=== PATIENT | male | born 1970 | race American Indian/Alaskan Native ===

== ENCOUNTER 2018-06-25 01:08 | Emergency (ER) | payer SELFPAY ==
[2018-06-25 01:18] VITALS: BP 153/102
[2018-06-25 02:16] LABS: Basophils # (Auto) 0.1 K/mm3 (0.0-0.1); Basophils % (Auto) 0.9 % (0.0-1.8); Eosinophils # (Auto) 0.1 K/mm3 (0.0-0.4); Eosinophils % (Auto) 1.4 % (0.0-4.3); Hematocrit 45.3 % (35.5-45.6); Hemoglobin 15.2 gm/dl (11.8-15.2); Lymphocytes # (Auto) 2.1 K/mm3 (1.2-5.4); Lymphocytes % (Auto) 24.8 % (13.4-35.0); Mean Corpuscular HGB Conc 34 % (32-34); Mean Corpuscular Volume 93 fl (84-94); Monocytes # (Auto) 0.7 K/mm3 (0.0-0.8); Monocytes % (Auto) 8.5 % (0.0-7.3); Platelet Count 215 K/mm3 (140-440); Red Blood Count 4.89 M/mm3 (3.65-5.03); Red Cell Distribution Width 15.5 % (13.2-15.2)
--- NOTE | 2018-06-25 02:31 | XRay Report ---
FINAL REPORT PROCEDURE: XR CHEST ROUTINE 2V TECHNIQUE: PA and lateral chest radiographs were obtained. CPT 53303 HISTORY: shortness of breath COMPARISON: No prior studies are available for comparison. FINDINGS: Heart: Normal. Mediastinum/Vessels: Normal. Lungs/Pleural space: Normal. Bony thorax: No acute osseous abnormality. Other: IMPRESSION: Normal examination.
[2018-06-25 02:35] LABS: BUN/Creatinine Ratio 11; Blood Urea Nitrogen 11 mg/dL (9-20); Calcium 9.2 mg/dL (8.4-10.2); Hemolysis Index 11
--- NOTE | 2018-06-25 05:03 | Emergency Department Report ---
- General Chief Complaint: Upper Respiratory Infection Stated Complaint: COLD SXS Time Seen by Provider: 06/25/18 04:53 Source: patient Mode of arrival: Ambulatory Limitations: No Limitations - History of Present Illness Initial Comments: 48-year-old -[place] male comes to the emergency room complaining of cold-like symptoms with productive cough green yellow sputum and chills body aches 3 weeks. Patient does not have a primary care provider. Patient does have a history of psychosis and PTSD. Patient reports he has taken [id number] Robitussin and Mucinex. MD Complaint: cough, rhinorrhea, nasal congestion -: week(s) (3) Severity: severe Consistency: intermittent Worsens With: nothing Associated Symptoms: fever, chills, myalgias, rhinorrhea, nasal congestion, cough Treatments Prior to Arrival: "cold medicine" - Related Data Previous Rx's Medication Instructions Recorded Last Taken Type Azithromycin [Zithromax Z-CELENA] 250 mg PO QDAY 6 Days #6 tablet 06/25/18 Unknown Rx Dexchlorpheniram/Phenylephrine 1 each PO Q6H #20 tab 06/25/18 Unknown Rx [Rymed Tablet] Allergies Allergy/AdvReac Type Severity Reaction Status Date / Time No Known Allergies Allergy Unverified 11/01/14 00:04 ED Review of Systems ROS: Stated complaint: COLD SXS Other details as noted in HPI Comment: All other systems reviewed and negative Constitutional: chills, fever ENT: throat pain, congestion Respiratory: cough Gastrointestinal: denies: abdominal pain, nausea, diarrhea Genitourinary: denies: urgency, dysuria Musculoskeletal: denies: back pain, joint swelling, arthralgia Skin: denies: rash, lesions Neurological: denies: headache, weakness, paresthesias ED Past Medical Hx - Past Medical History Previous Medical History?: Yes Hx Psychiatric Treatment: Yes (IP/OP) Additional medical history: Bronchitis - Surgical History Past Surgical History?: No - Social History Smoking Status: Light Tobacco Smoker Substance Use Type: Marijuana - Medications Home Medications: Home Medications Medication Instructions Recorded Confirmed Last Taken Type Azithromycin [Zithromax Z-CELENA] 250 mg PO QDAY 6 Days #6 tablet 06/25/18 Unknown Rx Dexchlorpheniram/Phenylephrine 1 each PO Q6H #20 tab 06/25/18 Unknown Rx [Rymed Tablet] ED Physical Exam - General Limitations: No Limitations General appearance: alert, in no apparent distress - Head Head exam: Present: atraumatic, normocephalic - Eye Eye exam: Present: EOMI - ENT ENT exam: Present: mucous membranes moist - Neck Neck exam: Present: normal inspection, full ROM. Absent: lymphadenopathy - Respiratory Respiratory exam: Present: normal lung sounds bilaterally. Absent: respiratory distress - Cardiovascular Cardiovascular Exam: Present: regular rate, normal rhythm. Absent: systolic murmur, diastolic murmur, rubs, gallop - Neurological Exam Neurological exam: Present: alert, oriented X3 - Psychiatric Psychiatric exam: Present: normal affect, normal mood - Skin Skin exam: Present: warm, dry, intact, normal color. Absent: rash ED Course Vital Signs 06/25/18 01:16 Temperature 97.9 F Pulse Rate 101 H Respiratory 18 Rate Blood Pressure 153/102 O2 Sat by Pulse 98 Oximetry ED Medical Decision Making - Lab Data Result diagrams: 06/25/18 02:04 06/25/18 02:04 - Radiology Data Radiology results: report reviewed Chest x-ray normal examination Critical care attestation.: If time is entered above; I have spent that time in minutes in the direct care of this critically ill patient, excluding procedure time. ED Disposition Clinical Impression: URI (upper respiratory infection) Qualifiers: URI type: unspecified URI Qualified Code(s): J06.9 - Acute upper respiratory infection, unspecified Disposition: DC-01 TO HOME OR SELFCARE Is pt being admited?: No Does the pt Need Aspirin: No Condition: Stable Instructions: Upper Respiratory Infection (ED) Additional Instructions: Complete antibiotics as prescribed. Take antihistamine as prescribed. Please increase clear fluid intake while taking medication. Symptoms persisted gets worse please follow up with her primary care provider. Prescriptions: Azithromycin [Zithromax Z-CELENA] 250 mg PO QDAY 6 Days #6 tablet Dexchlorpheniram/Phenylephrine [Rymed Tablet] 1 each PO Q6H #20 tab Referrals: MYRTLE SMITH MD [Primary Care Provider] - 3-5 Days
== END 2018-06-25 05:15 | disposition home or self-care (01) ==
LOC: ED 01:08
DX: J06.9 Acute upper respiratory infection, unspecified (principal); F17.200 Nicotine dependence, unspecified, uncomplicated; F12.10 Cannabis abuse, uncomplicated
CPT/HCPCS: 36415; 71046; 80048; 85025

== ENCOUNTER 2018-07-09 22:51 | Emergency (ER) | payer OTHER ==
[2018-07-09 23:09] VITALS: BP 135/63
--- NOTE | 2018-07-10 01:31 | Emergency Department Report ---
ED Shortness of Breath HPI - General Chief Complaint: Dyspnea/Respdistress Stated Complaint: DIFFICULTY BREATHING Time Seen by Provider: 07/10/18 01:26 Source: patient Mode of arrival: Ambulatory Limitations: No Limitations - History of Present Illness Initial Comments: 48-year-old -[place] male with a past medical history of psychosis, tobacco use, PTSD, chronic bronchitis comes in today stating that he has shortness of breathing and coughing a lot. Patient reports that he was seen at [facility] last night and was given 2 breathing treatments and a prescription for Tessalon Perles. Patient reports last week she was seen at [facility] for the same complaint. Patient was also seen here on 06/25/2018 and was prescribed a Zithromax and Rymed. Patient denies any wheezing. MD Complaint: cough -: week(s) (3) Associated Symptoms: cough - Related Data Home Oxygen Therapy: No Previous Rx's Medication Instructions Recorded Last Taken Type Azithromycin [Zithromax Z-CELENA] 250 mg PO QDAY 6 Days #6 tablet 06/25/18 Unknown Rx Dexchlorpheniram/Phenylephrine 1 each PO Q6H #20 tab 06/25/18 Unknown Rx [Rymed Tablet] Allergies Allergy/AdvReac Type Severity Reaction Status Date / Time No Known Allergies Allergy Unverified 11/01/14 00:04 ED Review of Systems ROS: Stated complaint: DIFFICULTY BREATHING Other details as noted in HPI ED Past Medical Hx - Past Medical History Previous Medical History?: Yes Hx Psychiatric Treatment: Yes (IP/OP) Additional medical history: Bronchitis - Surgical History Past Surgical History?: No - Social History Smoking Status: Current Some Day Smoker Substance Use Type: Other - Medications Home Medications: Home Medications Medication Instructions Recorded Confirmed Last Taken Type Azithromycin [Zithromax Z-CELENA] 250 mg PO QDAY 6 Days #6 tablet 06/25/18 Unknown Rx Dexchlorpheniram/Phenylephrine 1 each PO Q6H #20 tab 06/25/18 Unknown Rx [Rymed Tablet] ED Physical Exam - General Limitations: No Limitations General appearance: alert, in no apparent distress - Eye Eye exam: Present: EOMI - ENT ENT exam: Present: mucous membranes moist - Neck Neck exam: Present: normal inspection - Respiratory Respiratory exam: Present: normal lung sounds bilaterally. Absent: respiratory distress - Cardiovascular Cardiovascular Exam: Present: tachycardia - GI/Abdominal GI/Abdominal exam: Present: soft, normal bowel sounds - Rectal Rectal exam: Present: deferred - Extremities Exam Extremities exam: Present: normal inspection, full ROM - Back Exam Back exam: Present: normal inspection - Neurological Exam Neurological exam: Present: alert, oriented X3, normal gait - Expanded Psychiatric Exam Expanded Focused psych exam: Present: pressured speech, loose associations - Skin Skin exam: Present: warm, dry, intact, normal color. Absent: rash ED Course Vital Signs 07/09/18 23:04 Temperature 98.1 F Pulse Rate 104 H Respiratory 18 Rate Blood Pressure 135/63 O2 Sat by Pulse 98 Oximetry ED Medical Decision Making - Medical Decision Making Patient has been evaluated by this provider and a ACC. Patient has no wheezing no coughing during my interview process as well as my examination. Patient shows me a bottle of Tessalon Perles. He also shows me a bottle of amoxicillin. Patient is discharged home to follow up with the primary care provider. Patient is encouraged to take his trazodone and Zoloft. Critical care attestation.: If time is entered above; I have spent that time in minutes in the direct care of this critically ill patient, excluding procedure time. ED Disposition Clinical Impression: Cough Disposition: DC-01 TO HOME OR SELFCARE Is pt being admited?: No Does the pt Need Aspirin: No Condition: Stable Instructions: Chronic Cough (ED) Additional Instructions: Please is continue taking your cough medication that was given to you at [facility] which was Tessalon Perles. Follow-up with her primary care provider I have listed one below for your convenience. Referrals: MYRTLE SMITH MD [Primary Care Provider] - 3-5 Days Forms: Work/School Release Form(ED)
== END 2018-07-10 03:15 | disposition home or self-care (01) ==
LOC: ED 22:51
DX: R05 Cough (principal); R06.02 Shortness of breath; F17.200 Nicotine dependence, unspecified, uncomplicated; F43.10 Post-traumatic stress disorder, unspecified
CPT/HCPCS: 99283

== ENCOUNTER 2018-10-06 01:02 | Emergency (ER) | payer MEDICAID ==
[2018-10-06] MEDS ORDERED: DELTASONE PO ONE (03:34)
[2018-10-06] MEDS ORDERED: IBUPROFEN PO ONE (03:34)
[2018-10-06] MEDS ORDERED: ZOFRAN ODT PO ONE (03:34)
[2018-10-06] MEDS ORDERED: TYLENOL PO ONE (03:34)
--- NOTE | 2018-10-06 04:00 | Emergency Department Report ---
ED Back Pain/Injury HPI - General Chief Complaint: Extremity Injury, Lower Stated Complaint: ARTHRITIS Time Seen by Provider: 10/06/18 03:10 Source: patient Limitations: No Limitations - History of Present Illness MD Complaint: back pain, other (diffuse bilateral knee pain) -: Gradual, month(s) (6) Similar Symptoms Previously: Yes (chronic osteoarthritis) Place: home Radiation: left leg, right leg Severity: moderate Severity scale (0 -10): 5 Quality: sharp Consistency: constant Improves With: none, walking Worsens With: none, movement, sitting upright Context: other (chronic osteoarthritis) Associated Symptoms: difficulty walking. denies: confusion, weakness, chest pain, cough, difficulty urinating, diaphoresis, incontinence, constipation, headaches, abdominal pain, malaise, nausea/vomiting, seizure, shortness of breath, syncope - Related Data Previous Rx's Medication Instructions Recorded Last Taken Type Azithromycin [Zithromax Z-CELENA] 250 mg PO QDAY 6 Days #6 tablet 06/25/18 Unknown Rx Dexchlorpheniram/Phenylephrine 1 each PO Q6H #20 tab 06/25/18 Unknown Rx [Rymed Tablet] Ibuprofen [Motrin] 800 mg PO Q8HR PRN #20 tablet 10/06/18 Unknown Rx predniSONE [Deltasone] 60 mg PO QDAY #15 tab 10/06/18 Unknown Rx traMADol [Ultram] 50 mg PO Q6HR PRN #15 tablet 10/06/18 Unknown Rx Allergies Allergy/AdvReac Type Severity Reaction Status Date / Time No Known Allergies Allergy Unverified 11/01/14 00:04 ED Review of Systems ROS: Stated complaint: ARTHRITIS Other details as noted in HPI Comment: All other systems reviewed and negative Constitutional: no symptoms reported, see HPI. denies: diaphoresis, fever, malaise Eyes: as per HPI. denies: vision change ENT: as per HPI. denies: ear pain, dental pain, hearing loss Respiratory: no symptoms reported, see HPI. denies: cough, shortness of breath, SOB with exertion, SOB at rest Cardiovascular: as per HPI. denies: chest pain, palpitations, dyspnea on exertion, orthopnea, edema, syncope, paroxysmal nocturnal dyspnea Endocrine: no symptoms reported. denies: excessive sweating, flushing, intolerance to cold, increased thirst, unexplained weight gain Gastrointestinal: as per HPI. denies: abdominal pain, nausea, vomiting, diarrhea, hematemesis, melena Genitourinary: as per HPI. denies: urgency, dysuria, frequency, hematuria, discharge, testicular pain, testicular mass Musculoskeletal: as per HPI, back pain, arthralgia, myalgia Skin: as per HPI. denies: rash, lesions, change in color, change in hair/nails Neurological: as per HPI (diffuse joint pains). denies: headache, weakness, numbness, paresthesias, confusion Psychiatric: as per HPI Hematological/Lymphatic: as per HPI ED Past Medical Hx - Past Medical History Previous Medical History?: Yes Hx Psychiatric Treatment: Yes (IP/OP) Additional medical history: Bronchitis - Surgical History Past Surgical History?: No - Social History Smoking Status: Current Some Day Smoker - Medications Home Medications: Home Medications Medication Instructions Recorded Confirmed Last Taken Type Azithromycin [Zithromax Z-CELENA] 250 mg PO QDAY 6 Days #6 tablet 06/25/18 Unknown Rx Dexchlorpheniram/Phenylephrine 1 each PO Q6H #20 tab 06/25/18 Unknown Rx [Rymed Tablet] Ibuprofen [Motrin] 800 mg PO Q8HR PRN #20 tablet 10/06/18 Unknown Rx predniSONE [Deltasone] 60 mg PO QDAY #15 tab 10/06/18 Unknown Rx traMADol [Ultram] 50 mg PO Q6HR PRN #15 tablet 10/06/18 Unknown Rx ED Physical Exam - General Limitations: No Limitations General appearance: alert, in no apparent distress - Head Head exam: Present: atraumatic, normocephalic, normal inspection - Eye Eye exam: Present: normal appearance, PERRL, EOMI. Absent: scleral icterus, conjunctival injection, nystagmus Pupils: Present: normal accommodation - ENT ENT exam: Present: normal exam, normal orophraynx, mucous membranes moist, TM's normal bilaterally, normal external ear exam - Neck Neck exam: Present: normal inspection - Respiratory Respiratory exam: Present: normal lung sounds bilaterally. Absent: wheezes, rales, rhonchi, chest wall tenderness, accessory muscle use, decreased breath sounds, prolonged expiratory - Cardiovascular Cardiovascular Exam: Present: regular rate, normal heart sounds. Absent: normal rhythm, bradycardia, irregular rhythm, systolic murmur, diastolic murmur - GI/Abdominal GI/Abdominal exam: Present: soft, normal bowel sounds. Absent: tenderness, guarding, rebound, hyperactive bowel sounds, hypoactive bowel sounds, organomegaly - Rectal Rectal exam: Present: deferred - Extremities Exam Extremities exam: Present: normal inspection, tenderness (palpable lumbosacral paraspinal musculoskeletal tenderness). Absent: normal capillary refill, pedal edema, joint swelling, calf tenderness - Back Exam Back exam: Present: normal inspection, tenderness (palpable lumbar sacral paraspinal musculoskeletal tendon). Absent: CVA tenderness (L), muscle spasm, paraspinal tenderness, rash noted - Neurological Exam Neurological exam: Present: alert, oriented X3, CN II-XII intact, normal gait, reflexes normal - Psychiatric Psychiatric exam: Present: normal affect - Skin Skin exam: Present: warm, dry, intact, normal color ED Course Vital Signs 10/06/18 10/06/18 01:07 01:15 Temperature 98.1 F 98.1 F Pulse Rate 90 90 Respiratory 18 18 Rate Blood Pressure 136/79 136/79 O2 Sat by Pulse 98 98 Oximetry - Reevaluation(s) Reevaluation #1: 10/06/18 04:04 Patient is alert and oriented 3 and is mostly in distress but in pain. Vital signs are stable. Patient was treated for pain in the ED and discharged home on pain medications, and advised to follow up with his primary care physician in 3-4 days for reevaluation. ED Medical Decision Making - Medical Decision Making Patient has chronic pain from osteoarthritis. The patient was treated for the same in the ED and discharged home on medications for pain. Patient is advised to follow up with his primary care physician in 7-10 days for reevaluation or return to the ED immediately if symptoms get worse. - Differential Diagnosis chronic osteoarthritis, chronic pain, Critical care attestation.: If time is entered above; I have spent that time in minutes in the direct care of this critically ill patient, excluding procedure time. ED Disposition Clinical Impression: Chronic osteoarthritis, Chronic pain syndrome Disposition: TO HOME OR SELFCARE Is pt being admited?: No Does the pt Need Aspirin: No Condition: Stable Instructions: Chronic Pain (ED), Osteoarthritis (ED) Additional Instructions: Follow up with your Primary Care physician as advised. Return to the ED immediately if symptoms get worse. Prescriptions: predniSONE [Deltasone] 60 mg PO QDAY #15 tab Ibuprofen [Motrin] 800 mg PO Q8HR PRN #20 tablet PRN Reason: Pain , Severe (7-10) traMADol [Ultram] 50 mg PO Q6HR PRN #15 tablet PRN Reason: Pain Referrals: MYRTLE SMITH MD [Primary Care Provider] - 3-5 Days Time of Disposition: 04:09 Print Language: SYRIAC
[2018-10-06 05:07] VITALS: BP 128/80
== END 2018-10-06 05:00 | disposition home or self-care (01) ==
LOC: ED 01:02
DX: G89.29 Other chronic pain (principal); M19.90 Unspecified osteoarthritis, unspecified site; F17.200 Nicotine dependence, unspecified, uncomplicated
CPT/HCPCS: 99282; J7512; Q0162

== ENCOUNTER 2018-10-12 22:25 | Emergency (ER) | payer MEDICAID ==
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
[2018-10-12 22:45] VITALS: BP 150/93
[2018-10-12] MEDS ORDERED: BOOSTRIX IM ONE (22:56)
[2018-10-12] MEDS ORDERED: TYLENOL PO ONE (22:58)
[2018-10-12] MEDS ORDERED: IBUPROFEN PO ONE (22:58)
[2018-10-12] MEDS ORDERED: TETRACAINE 0.5% OU ONE (22:59)
[2018-10-12] MEDS ORDERED: FUL-GLO OP ONE (23:03)
[2018-10-12] MEDS: FUL-GLO OP ONE ×2 (23:06→23:18)
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
== END 2018-10-12 23:56 | disposition home or self-care (01) ==
LOC: ED 22:25
DX: S02.92XA Unspecified fracture of facial bones, initial encounter for closed fracture (principal); S05.92XA Unspecified injury of left eye and orbit, initial encounter; Y04.0XXA Assault by unarmed brawl or fight, initial encounter; Y93.89 Activity, other specified; Y92.410 Unspecified street and highway as the place of occurrence of the external cause; Y99.8 Other external cause status
CPT/HCPCS: 90471; 90715

== ENCOUNTER 2018-10-23 00:20 | Emergency (ER) | payer MEDICAID ==
[2018-10-23 01:29] VITALS: BP 143/87
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
== END 2018-10-23 04:10 | disposition home or self-care (01) ==
LOC: ED 00:20
DX: S05.92XD Unspecified injury of left eye and orbit, subsequent encounter (principal); H11.32 Conjunctival hemorrhage, left eye; F17.200 Nicotine dependence, unspecified, uncomplicated; X58.XXXD Exposure to other specified factors, subsequent encounter
CPT/HCPCS: 99282

== ENCOUNTER 2018-10-28 14:28 | Emergency (ER) | payer MEDICAID ==
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
[2018-10-28 15:31] LABS: Basophils # (Auto) 0.1 K/mm3 (0.0-0.1); Basophils % (Auto) 0.7 % (0.0-1.8); Eosinophils # (Auto) 0.1 K/mm3 (0.0-0.4); Eosinophils % (Auto) 1.6 % (0.0-4.3); Hematocrit 46.6 % (35.5-45.6); Hemoglobin 16.1 gm/dl (11.8-15.2); Lymphocytes # (Auto) 2.3 K/mm3 (1.2-5.4); Lymphocytes % (Auto) 25.5 % (13.4-35.0); Mean Corpuscular HGB Conc 34 % (32-34); Mean Corpuscular Volume 93 fl (84-94); Monocytes # (Auto) 0.7 K/mm3 (0.0-0.8); Monocytes % (Auto) 7.7 % (0.0-7.3); Platelet Count 241 K/mm3 (140-440); Red Blood Count 4.99 M/mm3 (3.65-5.03); Red Cell Distribution Width 14.4 % (13.2-15.2)
[2018-10-28 15:55] LABS: Alanine Aminotransferase 24 units/L (7-56); Albumin 3.8 g/dL (3.9-5); BUN/Creatinine Ratio 11; Blood Urea Nitrogen 11 mg/dL (9-20); Calcium 9.1 mg/dL (8.4-10.2); Hemolysis Index 84
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
[2018-10-28 16:52] LABS: Bilirubin,Urine NEG (Negative); Blood,Urine NEG (Negative); Color,Urine Yellow (Yellow); Mucus,Urine FEW /HPF; Protein,Urine <15 mg/dL mg/dL (Negative); Urobilinogen,Urine < 2.0 mg/dL (<2.0); WBC,Urine < 1.0 /HPF (0.0-6.0)
[2018-10-28 17:29] LABS: Amphetamine Screen,Urine PRESUMPTIVE NEGATIVE; Benzodiazepines Screen,Urine PRESUMPTIVE NEGATIVE; Cannabinoid Screen,Urine PRESUMPTIVE POSITIVE
[2018-10-28 17:30] LABS: Cocaine Screen,Urine PRESUMPTIVE NEGATIVE; Methadone Screen,Urine PRESUMPTIVE NEGATIVE; Opiate Screen,Urine PRESUMPTIVE NEGATIVE
[2018-10-28] MEDS ORDERED: VISTARIL PO PRN (18:51)
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
[2018-10-29] MEDS: ZOLOFT PO SCH (17:34)
[2018-10-29] MEDS ORDERED: DESYREL PO SCH (22:00)
[2018-10-30] MEDS: ZOLOFT PO SCH (11:08)
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
[2018-10-30 14:17] VITALS: BP 139/94
== END 2018-10-30 15:00 | disposition home or self-care (01) ==
LOC: EEVIPCON 14:28 → ED 14:28
DX: F31.9 Bipolar disorder, unspecified (principal); H11.30 Conjunctival hemorrhage, unspecified eye; M19.90 Unspecified osteoarthritis, unspecified site; F17.210 Nicotine dependence, cigarettes, uncomplicated; F12.90 Cannabis use, unspecified, uncomplicated; Z79.899 Other long term (current) drug therapy
CPT/HCPCS: 36415; 80053; 80307; 81001; 84443; 85025; 99284; G0480; 80320; 99285

== ENCOUNTER 2018-12-25 20:34 | Emergency (ER) | payer MEDICAID ==
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
--- NOTE | 2018-12-25 22:44 | XRay Report ---
CHEST 2 VIEWS INDICATION / CLINICAL INFORMATION: Right chest pain. COMPARISON: 2 views of the chest from 06/25/2018. FINDINGS: SUPPORT DEVICES: None. HEART / MEDIASTINUM: No significant abnormality. LUNGS / PLEURA: No significant pulmonary or pleural abnormality. No pneumothorax. ADDITIONAL FINDINGS: No significant additional findings. IMPRESSION: No acute abnormality of the chest. Signer Name: Jean Marie Leggett MD Signed: 12/25/2018 10:39 PM Workstation Name: [id number]
--- NOTE | 2018-12-25 22:55 | Emergency Department Report ---
ED Chest Pain HPI - General Chief Complaint: Chest Pain Stated Complaint: ROCHELLE/CHEST PAIN Time Seen by Provider: 12/25/18 22:33 Source: patient Mode of arrival: Ambulatory Limitations: No Limitations - History of Present Illness Initial Comments: Patient is a 48-year-old male Emergency room for right-sided chest pain. Patient states chest pain is worse with palpation and movement of the right arm. Patient states his pain is better with rest and not moving the right arm. Patient states his chest pain is a 2-3 out of 10. Patient states his pain is nonradiating. Patient states he has been working hard lately. Patient denies past medical history. Patient states because of the pain it is difficult for him to take a deep breath. symptoms started 5 hours ago MD Complaint: chest pain -: Sudden Severity scale (0 -10): 6 - Related Data Previous Rx's Medication Instructions Recorded Last Taken Type Azithromycin [Zithromax Z-CELENA] 250 mg PO QDAY 6 Days #6 tablet 06/25/18 Unknown Rx Dexchlorpheniram/Phenylephrine 1 each PO Q6H #20 tab 06/25/18 Unknown Rx [Rymed Tablet] Ibuprofen [Motrin] 800 mg PO Q8HR PRN #20 tablet 10/06/18 Unknown Rx predniSONE [Deltasone] 60 mg PO QDAY #15 tab 10/06/18 Unknown Rx Ciprofloxacin HCl [Ciloxan] 1 drop OP Q2H #5 ml 10/12/18 Unknown Rx traMADol [Ultram 50 MG tab] 50 mg PO Q6HR PRN #15 tablet 12/26/18 Unknown Rx Allergies Allergy/AdvReac Type Severity Reaction Status Date / Time No Known Allergies Allergy Verified 10/12/18 23:03 Heart Score - HEART Score History: Slightly suspicious EKG: Normal Age: 45-65 Risk factors: 1-2 risk factors Troponin: < normal limit HEART Score: 2 ED Review of Systems ROS: Stated complaint: ROCHELLE/CHEST PAIN Other details as noted in HPI Constitutional: denies: chills, fever Eyes: denies: eye pain, eye discharge, vision change ENT: denies: ear pain, throat pain Respiratory: shortness of breath. denies: cough, wheezing Cardiovascular: chest pain. denies: palpitations Endocrine: no symptoms reported Gastrointestinal: denies: abdominal pain, nausea, diarrhea Genitourinary: denies: urgency, dysuria Musculoskeletal: denies: back pain, joint swelling, arthralgia Skin: denies: rash, lesions Neurological: denies: headache, weakness, paresthesias Psychiatric: denies: anxiety, depression Hematological/Lymphatic: denies: easy bleeding, easy bruising ED Past Medical Hx - Past Medical History Previous Medical History?: Yes Hx Arthritis: Yes Hx Psychiatric Treatment: Yes (PTSD) Additional medical history: Bronchitis - Surgical History Past Surgical History?: No - Family History Family history: no significant - Social History Smoking Status: Current Every Day Smoker Substance Use Type: Alcohol, Marijuana - Medications Home Medications: Home Medications Medication Instructions Recorded Confirmed Last Taken Type Azithromycin [Zithromax Z-CELENA] 250 mg PO QDAY 6 Days #6 tablet 06/25/18 Unknown Rx Dexchlorpheniram/Phenylephrine 1 each PO Q6H #20 tab 06/25/18 Unknown Rx [Rymed Tablet] Ibuprofen [Motrin] 800 mg PO Q8HR PRN #20 tablet 10/06/18 Unknown Rx predniSONE [Deltasone] 60 mg PO QDAY #15 tab 10/06/18 Unknown Rx Ciprofloxacin HCl [Ciloxan] 1 drop OP Q2H #5 ml 10/12/18 Unknown Rx traMADol [Ultram 50 MG tab] 50 mg PO Q6HR PRN #15 tablet 12/26/18 Unknown Rx ED Physical Exam - General Limitations: No Limitations General appearance: alert, in no apparent distress - Head Head exam: Present: atraumatic, normocephalic - Eye Eye exam: Present: normal appearance, PERRL Pupils: Present: normal accommodation - ENT ENT exam: Present: mucous membranes moist - Neck Neck exam: Present: normal inspection - Respiratory Respiratory exam: Present: normal lung sounds bilaterally, chest wall tenderness (patient's right-sided chest tenderness. The patient to the right-sided chest reproduces symptoms.). Absent: respiratory distress, wheezes, rales - Cardiovascular Cardiovascular Exam: Present: regular rate, normal rhythm. Absent: systolic murmur, diastolic murmur, rubs, gallop - GI/Abdominal GI/Abdominal exam: Present: soft, normal bowel sounds - Rectal Rectal exam: Present: deferred - Extremities Exam Extremities exam: Present: normal inspection - Back Exam Back exam: Present: normal inspection - Neurological Exam Neurological exam: Present: alert, oriented X3 - Psychiatric Psychiatric exam: Present: normal affect, normal mood - Skin Skin exam: Present: warm, dry, intact, normal color. Absent: rash ED Course Vital Signs 12/25/18 12/25/18 12/25/18 21:36 22:40 22:45 Temperature 99.1 F Pulse Rate 84 72 Respiratory 20 22 Rate Blood Pressure 145/91 Blood Pressure 134/89 [Left] O2 Sat by Pulse 98 95 98 Oximetry 12/25/18 12/25/18 12/25/18 23:00 23:15 23:21 Temperature Pulse Rate 71 68 72 Respiratory 24 28 H 30 H Rate Blood Pressure 145/91 140/90 140/90 Blood Pressure [Left] O2 Sat by Pulse 98 98 97 Oximetry 12/25/18 12/25/18 12/26/18 23:30 23:45 00:00 Temperature Pulse Rate 67 68 68 Respiratory 27 H 25 H 27 H Rate Blood Pressure 143/94 143/94 145/99 Blood Pressure [Left] O2 Sat by Pulse 98 98 97 Oximetry 12/26/18 12/26/18 12/26/18 00:15 00:31 00:45 Temperature Pulse Rate 67 68 74 Respiratory 17 27 H 27 H Rate Blood Pressure 143/94 126/83 126/83 Blood Pressure [Left] O2 Sat by Pulse 96 97 95 Oximetry - Reevaluation(s) Reevaluation #1: I discussed all results with patient. Patient is stable for discharge. Patient will be discharged home. Patient agrees with plan of care. Patient given discharge instructions. Patient information sent to the local home health clinical supervisor for further evaluation treatment. Patient voiced understanding of discharge instructions. 12/26/18 01:17 YESENIA score - Yesenia Score Age > 65: (0) No Aspirin use within the Past 7 Days: (0) No 3 or more CAD Risk Factors: (0) No 2 or more Angina events in past 24 hrs: (0) No Known CAD with more than 50% Stenosis: (0) No Elevated Cardiac Markers: (0) No ST Deviation Greater than 0.5mm: (0) No YESENIA Score: 0 ED Medical Decision Making - Lab Data Result diagrams: 12/26/18 00:29 12/26/18 00:29 - EKG Data -: EKG Interpreted by [facility] EKG shows normal: sinus rhythm, axis, intervals, QRS complexes, ST-T waves Rate: normal - Radiology Data Radiology results: report reviewed, image reviewed interpreted by me: No acute findings on chest x-ray. - Medical Decision Making Patient is a 48-year-old male that presents emergency room for right-sided chest pain. Patient's chest pain consistent with right-sided musculoskeletal pain. Patient's chest pain is reproducible on exam. Patient's chest x-ray negative. Patient EKG normal. Patient's initial cardiac workup negative. Patient's information sent to the local cardiologists since the patient's acute risk is low and the heart score is 2 and a low risk. - Differential Diagnosis chest pain. Musculoskeletal pain. Costochondritis. Chest sprain Critical care attestation.: If time is entered above; I have spent that time in minutes in the direct care of this critically ill patient, excluding procedure time. ED Disposition Clinical Impression: Right-sided chest pain, Chest pain, muscular Chest pain Qualifiers: Chest pain type: unspecified Qualified Code(s): R07.9 - Chest pain, unspecified Disposition: TO HOME OR SELFCARE Is pt being admited?: No Does the pt Need Aspirin: No Condition: Stable Instructions: Chest Pain (ED), Costochondritis (ED), Musculoskeletal Pain (ED) Additional Instructions: Patient involved with primary care in 2-3 days. Patient to follow up with home health clinical supervisor in 2-3 days. Patient to return to ER if condition worse. Patient take Tylenol or ibuprofen when necessary for pain. Patient does take meds as directed. Patient to rest. Patient to avoid strenuous exercise and working until cleared by primary care or home health clinical supervisor. Prescriptions: traMADol [Ultram 50 MG tab] 50 mg PO Q6HR PRN #15 tablet PRN Reason: Pain Referrals: PRIMARY CARE,MD [Primary Care Provider] - 2-3 Days Time of Disposition: 01:17
[2018-12-26 00:41] LABS: Basophils # (Auto) 0.1 K/mm3 (0.0-0.1); Basophils % (Auto) 0.9 % (0.0-1.8); Eosinophils # (Auto) 0.1 K/mm3 (0.0-0.4); Eosinophils % (Auto) 1.3 % (0.0-4.3); Hematocrit 44.4 % (35.5-45.6); Hemoglobin 15.2 gm/dl (11.8-15.2); Lymphocytes # (Auto) 2.4 K/mm3 (1.2-5.4); Lymphocytes % (Auto) 33.8 % (13.4-35.0); Mean Corpuscular HGB Conc 34 % (32-34); Mean Corpuscular Volume 93 fl (84-94); Monocytes # (Auto) 0.5 K/mm3 (0.0-0.8); Monocytes % (Auto) 7.4 % (0.0-7.3); Platelet Count 188 K/mm3 (140-440); Red Blood Count 4.81 M/mm3 (3.65-5.03); Red Cell Distribution Width 14.6 % (13.2-15.2)
[2018-12-26 00:56] VITALS: BP 126/83
[2018-12-26 01:08] LABS: Alanine Aminotransferase 25 units/L (7-56); Albumin 3.7 g/dL (3.9-5); BUN/Creatinine Ratio 14; Blood Urea Nitrogen 13 mg/dL (9-20); Hemolysis Index 9
== END 2018-12-26 01:41 | disposition home or self-care (01) ==
LOC: ED 20:34
DX: R07.89 Other chest pain (principal); M19.90 Unspecified osteoarthritis, unspecified site; F17.200 Nicotine dependence, unspecified, uncomplicated; F12.90 Cannabis use, unspecified, uncomplicated; Z79.899 Other long term (current) drug therapy
CPT/HCPCS: 36415; 71046; 80053; 83880; 84484; 85025; 93005; 93010; 99283

== ENCOUNTER 2018-12-26 09:05 | Emergency (ER) | payer MEDICAID ==
[2018-12-26 09:11] VITALS: BP 134/79
--- NOTE | 2018-12-26 10:08 | Emergency Department Report ---
ED General Adult HPI - General Chief complaint: Medical Clearance Stated complaint: FOLLOW UP Time Seen by Provider: 12/26/18 10:05 Source: patient Mode of arrival: Ambulatory Limitations: No Limitations - History of Present Illness Initial comments: Patient presents requesting clearance to donate blood. Reports he was recently seen in the ER for his eye and requesting paperwork that he can take back to the blood donation center to show he is medically clear to donate blood. Severity scale (0 -10): 0 Improves with: none Worsens with: none Associated Symptoms: denies other symptoms - Related Data Previous Rx's Medication Instructions Recorded Last Taken Type Azithromycin [Zithromax Z-CELENA] 250 mg PO QDAY 6 Days #6 tablet 06/25/18 Unknown Rx Dexchlorpheniram/Phenylephrine 1 each PO Q6H #20 tab 06/25/18 Unknown Rx [Rymed Tablet] Ibuprofen [Motrin] 800 mg PO Q8HR PRN #20 tablet 10/06/18 Unknown Rx predniSONE [Deltasone] 60 mg PO QDAY #15 tab 10/06/18 Unknown Rx Ciprofloxacin HCl [Ciloxan] 1 drop OP Q2H #5 ml 10/12/18 Unknown Rx traMADol [Ultram 50 MG tab] 50 mg PO Q6HR PRN #15 tablet 12/26/18 Unknown Rx Allergies Allergy/AdvReac Type Severity Reaction Status Date / Time No Known Allergies Allergy Verified 10/12/18 23:03 ED Review of Systems ROS: Stated complaint: FOLLOW UP Other details as noted in HPI Other: GENERAL: No weight change, fatigue, fever, chills, or night sweats SKIN: No changes in skin or hair, no itching, no rashes, no jaundice HEAD: No trauma, headache, or visual changes EYES: No blurriness, tearing, itching, acute visual loss, conjunctival discoloration, or scleral icterus EARS: No hearing loss, tinnitus, vertigo, or earache NOSE: No rhinorrhea, stuffiness, sneezing, itching, or epistaxis MOUTH: No bleeding gums, hoarseness, sore throat, or swelling CARDIAC: No new murmur, chest pain, palpitations, dyspnea on exertion, orthopnea, PND, or edema RESPIRATORY: No shortness of breath, wheeze, cough, sputum production, hemoptysis, pneumonia, asthma, bronchitis, or emphysema GI: No change in appetite, nausea, vomiting, dysphagia, diarrhea, constipation, hematemesis, melena, hematochezia, or abdominal pain URINARY: No frequency, urgency, polyuria, dysuria, hematuria, or incontinence MUSCULOSKELETAL: No muscle weakness, joint stiffness, decrease in range of motion, redness, swelling NEUROLOGIC: No headache, loss of sensation, numbness, tingling, tremors, weakness, paralysis, seizures HEMATOLOGIC: No anemia, easy bruising, bleeding, petechiae, or purpura ENDOCRINE: No hot or cold intolerance, sweating, polyuria, polydipsia or, polyphagia no thyroid problems PSYCHIATRIC: No change in mood, no anxiety, no depression ED Past Medical Hx - Past Medical History Previous Medical History?: Yes Hx Arthritis: Yes Hx Psychiatric Treatment: Yes (PTSD) Additional medical history: Bronchitis - Surgical History Past Surgical History?: No - Social History Smoking Status: Current Every Day Smoker Substance Use Type: Alcohol - Medications Home Medications: Home Medications Medication Instructions Recorded Confirmed Last Taken Type Azithromycin [Zithromax Z-CELENA] 250 mg PO QDAY 6 Days #6 tablet 06/25/18 Unknown Rx Dexchlorpheniram/Phenylephrine 1 each PO Q6H #20 tab 06/25/18 Unknown Rx [Rymed Tablet] Ibuprofen [Motrin] 800 mg PO Q8HR PRN #20 tablet 10/06/18 Unknown Rx predniSONE [Deltasone] 60 mg PO QDAY #15 tab 10/06/18 Unknown Rx Ciprofloxacin HCl [Ciloxan] 1 drop OP Q2H #5 ml 10/12/18 Unknown Rx traMADol [Ultram 50 MG tab] 50 mg PO Q6HR PRN #15 tablet 12/26/18 Unknown Rx ED Physical Exam - General Limitations: No Limitations - Other Other exam information: GENERAL: Patient in no acute distress HEAD: Normocephalic, atraumatic EYES: PERRLA, EOM intact, no scleral icterus, visual rodriguez and acuity wnl NOSE: No tenderness, discharge, sinus tenderness MOUTH: No erythema, bleeding, exudate HEART: Regular rate and rhythm, no murmur, S1-S2 are auscultated, pulses are symmetric LUNGS: Bilateral breath sounds, No tachypnea, No retractions, No wheezing, rales, rhonchi ABDOMEN: Normal bowel sounds, abdomen soft, no tenderness, no rebound, no guarding, no distention, no masses, no CVA tenderness MUSCULOSKELETAL: Normal joint range of motion, no redness, no swelling, no tenderness NEUROLOGIC: GCS 15, Alert and Oriented x3, Cranial nerves intact, normal sensation, normal strength, normal gait, no cerebellar deficit, NIHSS 0 PSYCHIATRIC: No homicidal or suicidal ideation, no anxiety, no depression, no hallucinations SKIN: Skin is warm and dry, no wounds, no rashes ED Course Vital Signs 12/26/18 09:10 Temperature 98.1 F Pulse Rate 74 Respiratory 18 Rate Blood Pressure 134/79 O2 Sat by Pulse 100 Oximetry ED Medical Decision Making - Medical Decision Making Patient comfortable. Encouraged to follow up with medical records for documentation and to establish care with a PCP. Plan discharge with outpatient follow up. Return if any worsening. Critical care attestation.: If time is entered above; I have spent that time in minutes in the direct care of this critically ill patient, excluding procedure time. ED Disposition Clinical Impression: Well adult exam Disposition: - TO HOME OR SELFCARE Is pt being admited?: No Condition: Stable Instructions: Normal Exam (ED) Referrals: [facility] [place] [Outside] - 2-3 Days KELLY DE LEON MD [Staff Physician] - 2-3 Days BETI JACKSON MD [Staff Physician] - 2-3 Days Time of Disposition: 10:07
== END 2018-12-26 10:35 | disposition home or self-care (01) ==
LOC: ED 09:05
DX: Z00.00 Encounter for general adult medical examination without abnormal findings (principal); M19.90 Unspecified osteoarthritis, unspecified site; F43.10 Post-traumatic stress disorder, unspecified; F17.200 Nicotine dependence, unspecified, uncomplicated; Z79.899 Other long term (current) drug therapy
CPT/HCPCS: 99282

== ENCOUNTER 2022-01-08 08:46 | Emergency (ER) | payer MEDICAID ==
--- NOTE | 2022-01-08 14:42 | Emergency Department Report ---
- General Chief complaint: Skin Rash Stated complaint: INSECT BITE LT EYEBROW Time Seen by Provider: 01/08/22 12:55 Source: EMS Mode of arrival: Stretcher Limitations: No Limitations - History of Present Illness Initial comments: This is a 52-year-old male nontoxic, well nourished in appearance, no acute signs of distress presents to the ED with c/o of redness and pain with small swelling to left upper eyebrow area x several days. Patient denies any pus or drainage. Patient denies any fever, chills, nausea, vomiting, chest pain, shortness of breath, headache or stiff neck. Patient denies any allergies or significant past medical history. MD complaint: insect bite/sting -: days(s) Severity scale (0 -10): 3 Quality: aching Consistency: constant Improves with: none Worsens with: none Context: none Associated symptoms: denies other symptoms - Related Data Previous Rx's Medication Instructions Recorded Last Taken Type Azithromycin [Zithromax Z-CELENA] 250 mg PO QDAY 6 Days #6 tablet 06/25/18 Unknown Rx Dexchlorpheniram/Phenylephrine 1 each PO Q6H #20 tab 06/25/18 Unknown Rx [Rymed Tablet] Ibuprofen [Motrin] 800 mg PO Q8HR PRN #20 tablet 10/06/18 Unknown Rx predniSONE [Deltasone] 60 mg PO QDAY #15 tab 10/06/18 Unknown Rx Ciprofloxacin HCl [Ciloxan] 1 drop OP Q2H #5 ml 10/12/18 Unknown Rx traMADoL [Ultram 50 MG tab] 50 mg PO Q6HR PRN #15 tablet 12/26/18 Unknown Rx Sulfamethoxazole/Trimethoprim 1 each PO BID #14 tab 01/08/22 Unknown Rx [Bactrim DS TAB] Allergies Allergy/AdvReac Type Severity Reaction Status Date / Time No Known Allergies Allergy Verified 01/08/22 08:52 Abscess Boil HPI - HPI Chief Complaint: Skin Rash Stated Complaint: INSECT BITE LT EYEBROW Time Seen by Provider: 01/08/22 12:55 Home Medications: Previous Rx's Medication Instructions Recorded Last Taken Type Azithromycin [Zithromax Z-CELENA] 250 mg PO QDAY 6 Days #6 tablet 06/25/18 Unknown Rx Dexchlorpheniram/Phenylephrine 1 each PO Q6H #20 tab 06/25/18 Unknown Rx [Rymed Tablet] Ibuprofen [Motrin] 800 mg PO Q8HR PRN #20 tablet 10/06/18 Unknown Rx predniSONE [Deltasone] 60 mg PO QDAY #15 tab 10/06/18 Unknown Rx Ciprofloxacin HCl [Ciloxan] 1 drop OP Q2H #5 ml 10/12/18 Unknown Rx traMADoL [Ultram 50 MG tab] 50 mg PO Q6HR PRN #15 tablet 12/26/18 Unknown Rx Sulfamethoxazole/Trimethoprim 1 each PO BID #14 tab 01/08/22 Unknown Rx [Bactrim DS TAB] Allergies/Adverse Reactions: Allergies Allergy/AdvReac Type Severity Reaction Status Date / Time No Known Allergies Allergy Verified 01/08/22 08:52 ED Review of Systems ROS: Stated complaint: INSECT BITE LT EYEBROW Other details as noted in HPI Comment: All other systems reviewed and negative Constitutional: denies: chills, fever Eyes: denies: eye pain, eye discharge, vision change ENT: denies: ear pain, throat pain Respiratory: denies: cough, shortness of breath, wheezing Cardiovascular: denies: chest pain, palpitations Endocrine: no symptoms reported Gastrointestinal: denies: abdominal pain, nausea, diarrhea Genitourinary: denies: urgency, dysuria Musculoskeletal: denies: back pain, joint swelling, arthralgia Skin: denies: rash, lesions Neurological: denies: headache, weakness, paresthesias Psychiatric: denies: anxiety, depression Hematological/Lymphatic: denies: easy bleeding, easy bruising ED Past Medical Hx - Past Medical History Hx Arthritis: Yes Hx Psychiatric Treatment: Yes (PTSD) Additional medical history: Bronchitis - Social History Smoking Status: Current Every Day Smoker Substance Use Type: Alcohol - Medications Home Medications: Home Medications Medication Instructions Recorded Confirmed Last Taken Type Azithromycin [Zithromax Z-CELENA] 250 mg PO QDAY 6 Days #6 tablet 06/25/18 Unknown Rx Dexchlorpheniram/Phenylephrine 1 each PO Q6H #20 tab 06/25/18 Unknown Rx [Rymed Tablet] Ibuprofen [Motrin] 800 mg PO Q8HR PRN #20 tablet 10/06/18 Unknown Rx predniSONE [Deltasone] 60 mg PO QDAY #15 tab 10/06/18 Unknown Rx Ciprofloxacin HCl [Ciloxan] 1 drop OP Q2H #5 ml 10/12/18 Unknown Rx traMADoL [Ultram 50 MG tab] 50 mg PO Q6HR PRN #15 tablet 12/26/18 Unknown Rx Sulfamethoxazole/Trimethoprim 1 each PO BID #14 tab 01/08/22 Unknown Rx [Bactrim DS TAB] ED Physical Exam - General Limitations: No Limitations General appearance: alert, in no apparent distress - Head Head exam: Present: atraumatic, normocephalic - Eye Eye exam: Present: normal appearance, PERRL, EOMI, other (left upper eyebrow small cellulitis with no inducation or flutance noted) - Neck Neck exam: Present: normal inspection, full ROM. Absent: tenderness, lymphadenopathy - Respiratory Respiratory exam: Absent: respiratory distress - Cardiovascular Cardiovascular Exam: Present: regular rate - Extremities Exam Extremities exam: Present: full ROM - Back Exam Back exam: Present: full ROM - Neurological Exam Neurological exam: Present: alert, oriented X3, normal gait - Psychiatric Psychiatric exam: Present: normal affect, normal mood - Skin Skin exam: Present: warm, dry, intact, normal color. Absent: rash ED Course Vital Signs 01/08/22 08:51 Temperature 98.4 F Pulse Rate 74 Respiratory 16 Rate Blood Pressure 118/72 [Right] O2 Sat by Pulse 98 Oximetry - Reevaluation(s) Reevaluation #1: 01/08/22 14:45 Patient is speaking in full sentences with no signs of distress noted. ED Medical Decision Making - Medical Decision Making This is a 52-year-old male that presents with cellulitis. Patient is stable and was examined by me. There is no induration, fluctuance. No signs of abscess formation. The area has been outlined with a permanent marker and patient was instructed to observe symptoms of increased redness or swelling and to return to the ER if this does occur. I will discharge patient with Bactrim. Patient was referred to Follow-up with a primary care doctor in 3-5 days or if symptoms worsen and continue return to emergency room as soon as possible. At time of discharge, the patient does not seem toxic or ill in appearance. No acute signs of distress noted. Patient agrees to discharge treatment plan of care. No further questions noted by the patient. Critical care attestation.: If time is entered above; I have spent that time in minutes in the direct care of this critically ill patient, excluding procedure time. ED Disposition Clinical Impression: Cellulitis of eyebrow Disposition: HOME / SELF CARE / HOMELESS Is pt being admited?: No Does the pt Need Aspirin: No Condition: Stable Instructions: Cellulitis, Adult, [id number] Additional Instructions: Follow-up with a primary care doctor in 3-5 days or if symptoms worsen and continue return to emergency room as soon as possible. Prescriptions: Sulfamethoxazole/Trimethoprim [Bactrim DS TAB] 1 each PO BID #14 tab Referrals: PRIMARY CAREMD [Referring] - 3-5 Days RAJWINDER ARGUELLO MD [Staff Physician] - 3-5 Days Time of Disposition: 14:46
[2022-01-08 15:51] VITALS: BP 123/86
== END 2022-01-08 15:51 | disposition home or self-care (01) ==
LOC: ED 08:46
DX: L03.211 Cellulitis of face (principal); M19.90 Unspecified osteoarthritis, unspecified site; F17.200 Nicotine dependence, unspecified, uncomplicated; Z72.89 Other problems related to lifestyle; Z79.899 Other long term (current) drug therapy
CPT/HCPCS: 99283